=== PATIENT | male | born 1965 | race Caucasian/White ===

== ENCOUNTER 2025-02-14 06:38 | Day surgery (SDC) | payer OTHER, SELFPAY ==
[2025-02-14] VITALS (8 sets, daily range): BP systolic 97–131; BP diastolic 70–84; PULSE 63–76; RESP 16; TEMP 36.2–36.8; O2SAT 94–99; BMI 30.6
--- OUTSIDE RECORDS SUMMARY | 2025-02-14 06:41 | XMS RPT_ITS | CCD ---
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 Name Role Phone Unavailable Primary Care Provider EM Ludwig Attending Unavailroxane zaragoza SELF Referring Unavailable Johan Stubbs PA-C Primary Care Provider KATHERINE MCNEIL APRN Attending Unavailable KATHERINE MCNEIL APRN Primary Care Unavailable KATHERINE MCNEIL APRN Admitting Unavailable KATHERINE MCNEIL APRN Attending Unavailable KATHERINE MCNEIL APRN Primary Care Unavailable KATHERINE MCNEIL APRN Admitting Unavailable KATHERINE MCNEIL APRN Attending Unavailable KATHERINE MCNEIL APRN Primary Care Unavailable KATHERINE MCNEIL APRN Admitting Unavailable KATHERINE MCNEIL APRN Attending Unavailable KATHERINE MCNEIL APRN Primary Care Unavailable KATHERINE MCNEIL APRN Admitting Unavailable Katherine Mcneil Primary Care UnavailBaltazar Vital Attending Unavailable Medications Current Medications Medication Drug Class(es) Dates Sig (Normalized) Sig (Original) Esomeprazole (1 source) Proton Pump Inhibitor esomeprazo le magnesium (NEXIUM ORAL) Take by mouth. Active Ibuprofen (3 sources) Nonsteroidal Anti-inflammatory Drug IBUPROFEN ORAL Ta ke by mouth as needed. Active IBUPROFEN ORAL T sabrina by mouth as needed. 0 Active Comment on above: Take by mouth as nee ded. Completed/Discontinued Medications Medication Drug Class(es) Dates Sig (Normalized) Sig (Original) tropicamide 10 mg/ml ophthalmic solution (4 sources) Anticholinergic Start: 05-10-2024 End: 05-10-2024 tropicamide 1 % 1 Drop (MYDRIACYL) Start: 05-10-2024 End: 05-10-2024 1 Drop, BOTH EYES, ONCE, 1 d ose, On Fri05/10/24 at 1730, FOR THE EYE Start: 05-05-2023 End: 05-05-2023 tropicamide 1 % 1 Drop (MYDR IACYL) Start: 06-18-2021 End: 06-18-2021 tropicamide 1 % 1 Drop (MYDR IACYL) Problems Active Problems Problem Classification Problem Date Documented Da te Episodic/Chronic Blindness and vision defects (12 sources) Bilateral hyperopia of eyes; Translations: [Hypermetropia, bilateral] Onset: 06-06-2020 Episodic Diabetes mellitus without complication (1 source) Type 2 diabetes mellitus without complications; Translations: [Type 2 diabetes mellitus without complications] Onset: 12-03-2024 Chronic Esophageal disorders (1 source) Gastro-esophageal reflux disease without esophagitis; Translations: [Gastro-esophagea l reflux disease without esophagitis] Onset: 12-03-2024 Chronic Essential hypertension (1 source) Essential (primary) hypertension; Translations: [Essential (primary) hypertension] Onset: 12-03-2024 Chronic Other liver diseases (1 source) Abnormal levels of other serum enzymes; Translations: [Abnormal levels of other serum enzymes] Onset: 12-03-2024 Episodic Other nutritional; endocrine; and metabolic disorders (1 source) Obesity, unspecified; Translations: [Obesity, unspecified] Onset: 12-03-2024 Chronic Other nutritional; endocrine; and metabolic disorders (1 source) Body mass index (BMI) 32.0-32.9, adult; Translations: [Body mass index [BMI] 32.0-32.9, adult] Onset: 05-19-2024 Chronic Past or Other Problems Problem Classification Problem Date Documented Date Episodic/Chronic Diabetes mellitus without complication (3 sources) Other abnormal glucose; Translations: [Other abnormal glucose] Onset: 05-20-2024 Episodic Fluid and electrolyte disorders (1 source) Hyperosmolality and hypernatremia; Translations: [Hyperosmolality and hypernatremia] Onset: 05-25-2024 Episodic Other screening for suspected conditions (not mental disorders or infectious disease) (4 sources) Encounter for screening for diseases of the blood and blood-forming organs and certain disorders involving the immune mechanism; Translations: [Encounter for screening for other metabolic disorders] Onset: 05-19-2024 Episodic Results Test Name Value Interpretation Reference Range Facil ity CBC + DIFFon 12-03-2024 Baso # 0.04 x10EE3/UL Normal 0.00 - 0.10 [facility] Comment on above: Performed By: #### 2 [id number] #### [facility],[address] [place] [address] 60114 Basophils/100 WBC (Bld) 0.4 % Normal 0.0 - 2.0 [facility] Comment on above: Performed By: #### 2 89438 #### [facility],[address] [place], [place] [id number] CBC + DIFF Normal [facility] Comment on above: Result Comment: CBC- COMPLETE BLOOD COUNT Performed By: #### 2 55900 #### [facility],[address] [place] [address] EO # 0.14 x10EE3/UL Normal 0.00 - 0.50 [facility] Comment on above: Performed By: #### 2 60660 #### [facility],[address] [place] [address] 37010 Eosinophils/100 WBC (Bld) 1.5 % Normal 0.0 - 7.0 [facility] Comment on above: Performed By: #### 2 41645 #### [facility],[address] [place], [place] [id number] Erythrocyte distribution width (RBC) [Ratio] 13.8 % Normal 12.0 - 15.6 [facility] Comment on above: Performed By: #### 2 10120 #### [facility],[address] [place] [address] Hematocrit (Bld) [Volume fraction] 47.5 % Normal 40.0 - 52.0 [facility] Comment on above: Performed By: #### 2 22854 #### [facility],[address] [place] [address] 58993 Hemoglobin (Bld) [Mass/Vol] 16.3 g/dL Normal 13.0 - 17.5 [facility] Comment on above: Performed By: #### 2 71307 #### [facility],[address] [place], [place] [phone] Lymph # 1.98 x10EE3/UL Normal 0.80 - 2.80 [facility] Comment on above: Performed By: #### 2 19758 #### [facility],[address] [place] [address] Lymphocytes/100 WBC (Bld) 22.0 % Normal 20.0 - 45.0 [facility] Comment on above: Performed By: #### 2 67969 #### [facility],[address] [place] [address] MANUAL DIFF N/A Normal [facility] Comment on above: Performed By: #### 2 94893 #### [facility],[address] [place] [address] MCH (RBC) [Entitic mass] 30 pg Normal 27 - 33 [facility] Comment on above: Performed By: #### 2 12622 #### [place] [address] MCHC 34 X10 3 Normal 32 - 36 [facility] Comment on above: Performed By: #### 2 50873 #### [place] [id number] MCV (RBC) [Entitic vol] 88 fL Normal 81 - 98 [facility] Comment on above: Performed By: #### 2 86369 #### [facility],[address] [place] [address] Tama # 0.59 x10EE3/UL Normal 0.20 - 1.00 [facility] Comment on above: Performed By: #### 2 66380 #### [place] [id number] MONOS % 6.6 % Normal 0.0 - 10.0 [facility] Comment on above: Performed By: #### 2 13990 #### [facility],[address] [place], [place] [phone] Morphology Dmitriy (Bld) [Interp] N/A Normal [facility] Comment on above: Performed By: #### 2 68319 #### [facility],[address] [place] [address] 21868 Neut # 6.26 x10EE3/UL Normal 1.50 - 7.10 [facility] [place] Comment on above: Performed By: #### 2 53381 #### [facility],[address] [place] [address] 89541 Neutrophils/100 WBC (Bld) 69.5 % Normal 46.0 - 76.0 [facility] Comment on above: Performed By: #### 2 41034 #### [facility],[address] [place] [address] 08672 PLATELET 259 x10EE3/UL Normal 150 - 450 [facility] Comment on above: Performed By: #### 2 55387 #### [facility],[address] [place] [address] 29963 Platelet mean volume (Bld) [Entitic vol] 7.7 fL Normal 6.4 - 10.5 [facility] Comment on above: Result Comment: AUTO MATED DIFFERENTIAL Performed By: #### 2 74817 #### [facility],[address] [place] [address] 80887 RBC 5.38 x 10EE6/UL Normal 4.50 - 6.00 [facility] Comment on above: Performed By: #### 2 34303 #### [facility],[address] [place] [address] 72124 WBC 9.0 x 10EE3/UL Normal 4.5 - 10.8 [facility] Comment on above: Performed By: #### 2 66470 #### [facility],[address] [place] [address] 90148 CMP with eGFRon 12-03-2024 AGE 59 years Normal [facility] Comment on above: Performed By: #### 2 02629 #### [facility],[address] [place] [address] 15821 Albumin [Mass/Vol] 3.6 g/dL Normal 3.4 - 5.0 [facility] Comment on above: Performed By: #### 2 57063 #### [facility],[address] [place] [address] 99117 Albumin/Globulin [Mass ratio] 1.1 {ratio} Normal 0.9 - 1.6 [facility] Comment on above: Performed By: #### 2 45907 #### [facility],[address] [place] [address] 49247 ALK PHOS 152 U/L High 46 - 116 [facility] Comment on above: Performed By: #### 2 91710 #### [facility],[address] [place], [place] [phone] ALT [Catalytic activity/Vol] 24 U/L Normal 16 - 63 [facility] Comment on above: Performed By: #### 2 97535 #### [facility],[address] [place], [place] [phone] Anion gap [Moles/Vol] 10 mmol/L Normal 10 - 20 [facility] Comment on above: Performed By: #### 2 08860 #### [facility],[address] [place] [address] 97790 AST [Catalytic activity/Vol] 23 U/L Normal 15 - 37 [facility] Comment on above: Performed By: #### 2 90876 #### [facility],[address] [place] [address] 66856 B/C RATIO 24 ratio Normal 0 - 30 [facility] Comment on above: Performed By: #### 2 36355 #### [facility],[address] [place] [address] 46800 Bilirubin [Mass/Vol] 0.4 mg/dL Normal 0.2 - 1.0 [facility] Comment on above: Performed By: #### 2 72515 #### [facility],[address] [place] [address] 58941 Calcium [Mass/Vol] 9.0 mg/dL Normal 8.5 - 10.1 [facility] Comment on above: Performed By: #### 2 84521 #### [facility],[address] [place], [place] [phone] Chloride [Moles/Vol] 107 mmol/L Normal 98 - 107 [facility] Comment on above: Performed By: #### 2 36949 #### [facility],[address] [place] [address] 13898 CMP with eGFR Normal [facility] Comment on above: Result Comment: COMP REHENSIVE METABOLIC PANEL Performed By: #### 2 47327 #### [place] [address] CO2 [Moles/Vol] 30.9 mmol/L Normal 21.0 - 32.0 [facility] Comment on above: Performed By: #### 2 54451 #### [facility],[address] [place], [place] [phone] Creatinine [Mass/Vol] 0.79 mg/dL Normal 0.70 - 1.30 [facility] Comment on above: Performed By: #### 2 80053 #### [facility],[address] [place], [place] [phone] GFR/1.73 sq M.predicted among non-blacks MDRD (S/P/Bld) [Vol rate/Area] mL/min/{1.73_m2} Normal 60 - 999 [facility] Comment on above: Performed By: #### 2 37907 #### [facility],[address] [place] [address] Result Comment: ACCO RDING TO THE NATIONAL KIDNEY DISEASE EDUCATION PROGRAM(NKDE), A NORMAL eGFR IS A VALUE GREATER THAN OR EQUAL TO 60 ML/MIN/1.73 SQ METERS. CHRONIC KIDNEY DISEASE: <60mL/MIN/1.73 SQ METERS KIDNEY FAILURE: <15mL/MIN/1.73 SQ METERS THIS TEST SHOULD ONLY BE USED FOR PATIENTS 18 YEARS OF AGE AND OLDER. Globulin (S) [Mass/Vol] 3.3 g/dL Normal 1.5 - 3.8 [facility] Comment on above: Performed By: #### 2 84896 #### [facility],[address] [place] [address] 92918 Glucose [Mass/Vol] 117 mg/dL High 74 - 106 [facility] Comment on above: Performed By: #### 2 34303 #### [facility],[address] [place] [address] 30169 Potassium [Moles/Vol] 4.1 mmol/L Normal 3.5 - 5.1 [facility] Comment on above: Performed By: #### 2 57301 #### [facility],[address] [place] [address] 52918 Protein [Mass/Vol] 6.9 g/dL Normal 6.4 - 8.2 [facility] Comment on above: Performed By: #### 2 93110 #### [facility],[address] [place] [address] 74377 Sodium [Moles/Vol] 144 mmol/L Normal 136 - 145 [facility] Comment on above: Performed By: #### 2 57449 #### [facility],[address] [place] [address] 19146 Urea nitrogen [Mass/Vol] 19 mg/dL High 7 - 18 [facility] Comment on above: Performed By: #### 2 64886 #### [facility],[address] [place] [address] 62584 HEMOGLOBIN A1C (POM)on 12-03 Glucose [Mass/Vol] 137.0 mg/dL High 0.0 - 0.0 [facility] Comment on above: Result Comment: BLDo HEMOGLOBIN A1C REFERENCE RANGESBLDo Suggested Diagnosis HbA1c(%) HbA1C (mmol/mol Diabetic >/=6.5 >/=48 Prediabetes 5.7 - 6.4 39 - 47 Normal <5.7 <39 Performed By: #### 2 81780 #### [facility],[address] [place] [address] 21828 HbA1c (Bld) [Mass fraction] 6.4 % Normal 0.0 - 6.5 [facility] Comment on above: Performed By: #### 2 56747 #### [facility],[address] [place] [address] 64561 LIPID PROFILEon 12-03-2024 Cholesterol [Mass/Vol] 174 mg/dL Normal 0 - 240 [facility] Comment on above: Performed By: #### 2 03881 #### [facility],[address] [place] [address] 02247 Cholesterol in HDL [Mass/Vol] 39 mg/dL Low 40 - 60 [facility] Comment on above: Performed By: #### 2 07549 #### [facility],[address] [place] [address] 44527 Cholesterol in LDL [Mass/Vol] 122 mg/dL Normal 0 - 129 [facility] Comment on above: Performed By: #### 2 82870 #### [facility],[address] [place] [address] 27325 Cholesterol.total/ Cholesterol in HDL [Mass ratio] 4.5 {ratio} Normal 0.0 - 5.0 [facility] Comment on above: Performed By: #### 2 68276 #### [facility],[address] [place] [address] 57064 Lipid 1996 panel Normal [facility] Comment on above: Result Comment: LIPI D PROFILE Performed By: #### 2 48938 #### [facility],[address] [place] [address] 84590 Triglyceride [Mass/Vol] 64 mg/dL Normal 0 - 150 [facility] Comment on above: Performed By: #### 2 10971 #### [facility],[address] [place] [address] 71658 CMP with eGFRon 05-25-2024 AGE 58 years Normal [facility] Comment on above: Performed By: #### 2 28983 #### [facility],[address] [place] [address] 04683 Albumin [Mass/Vol] 4.1 g/dL Normal 3.4 - 5.0 [facility] Comment on above: Performed By: #### 2 43707 #### [facility],[address] [place] [address] 72745 Albumin/Globulin [Mass ratio] 1.2 {ratio} Normal 0.9 - 1.6 [facility] Comment on above: Performed By: #### 2 51054 #### [facility],[address] [place] [address] 26124 ALK PHOS 160 U/L High 46 - 116 [facility] Comment on above: Performed By: #### 2 90105 #### [facility],[address] [place] [address] 81750 ALT [Catalytic activity/Vol] 27 U/L Normal 16 - 63 [facility] Comment on above: Performed By: #### 2 29803 #### [facility],[address] [place] [address] 41135 Anion gap [Moles/Vol] 11 mmol/L Normal 10 - 20 [facility] Comment on above: Performed By: #### 2 61242 #### [facility],[address] [place] [address] 60820 AST [Catalytic activity/Vol] 34 U/L Normal 15 - 37 [facility] Comment on above: Performed By: #### 2 48420 #### [facility],[address] [place] [address] 44077 B/C RATIO 14 ratio Normal 0 - 30 [facility] Comment on above: Performed By: #### 2 79390 #### [facility],[address] [place] [address] 14654 Bilirubin [Mass/Vol] 0.5 mg/dL Normal 0.2 - 1.0 [facility] Comment on above: Performed By: #### 2 28822 #### [facility],[address] [place] [address] 71919 Calcium [Mass/Vol] 9.5 mg/dL Normal 8.5 - 10.1 [facility] Comment on above: Performed By: #### 2 16324 #### [facility],[address] [place] [address] 13336 Chloride [Moles/Vol] 106 mmol/L Normal 98 - 107 [facility] Comment on above: Performed By: #### 2 88084 #### [facility],[address] [place] [address] 78724 CMP with eGFR Normal [facility] Comment on above: Result Comment: COMP REHENSIVE METABOLIC PANEL Performed By: #### 2 49263 #### [facility],[address] [place] [address] 86321 CO2 [Moles/Vol] 27.9 mmol/L Normal 21.0 - 32.0 [facility] Comment on above: Performed By: #### 2 10883 #### [facility],[address] [place] [address] 08806 Creatinine [Mass/Vol] 0.83 mg/dL Normal 0.70 - 1.30 [facility] Comment on above: Performed By: #### 2 67342 #### [facility],[address] [place] [address] 04859 GFR/1.73 sq M.predicted among non-blacks MDRD (S/P/Bld) [Vol rate/Area] mL/min/{1.73_m2} Normal 60 - 999 [facility] Comment on above: Performed By: #### 2 99530 #### [facility],[address] [place] [address] 14673 Result Comment: ACCO RDING TO THE NATIONAL KIDNEY DISEASE EDUCATION PROGRAM(NKDE), A NORMAL eGFR IS A VALUE GREATER THAN OR EQUAL TO 60 ML/MIN/1.73 SQ METERS. CHRONIC KIDNEY DISEASE: <60mL/MIN/1.73 SQ METERS KIDNEY FAILURE: <15mL/MIN/1.73 SQ METERS THIS TEST SHOULD ONLY BE USED FOR PATIENTS 18 YEARS OF AGE AND OLDER. Globulin (S) [Mass/Vol] 3.5 g/dL Normal 1.5 - 3.8 [facility] Comment on above: Performed By: #### 2 90636 #### [facility],[address] [place] [address] 23580 Glucose [Mass/Vol] 115 mg/dL High 74 - 106 [facility] Comment on above: Performed By: #### 2 58814 #### [facility],[address] [place] [address] 64657 Potassium [Moles/Vol] 4.3 mmol/L Normal 3.5 - 5.1 [facility] Comment on above: Performed By: #### 2 53284 #### [facility],[address] [place] [address] 12527 Protein [Mass/Vol] 7.6 g/dL Normal 6.4 - 8.2 [facility] Comment on above: Performed By: #### 2 93272 #### [facility],[address] [place] [address] 57083 Sodium [Moles/Vol] 141 mmol/L Normal 136 - 145 [facility] Comment on above: Performed By: #### 2 05769 #### [facility],[address] [place] [address] 44786 Urea nitrogen [Mass/Vol] 12 mg/dL Normal 7 - 18 [facility] Comment on above: Performed By: #### 2 36340 #### [facility],[address] [place] [address] 56277 HEMOGLOBIN A1C (POM)on 05-20 Glucose [Mass/Vol] 148.5 mg/dL High 0.0 - 0.0 [facility] Comment on above: Result Comment: BLDo HEMOGLOBIN A1C REFERENCE RANGESBLDo Suggested Diagnosis HbA1c(%) HbA1C (mmol/mol Diabetic >/=6.5 >/=48 Prediabetes 5.7 - 6.4 39 - 47 Normal <5.7 <39 Performed By: #### 2 81060 #### [facility],[address] [place] [address] HbA1c (Bld) [Mass fraction] 6.8 % High 0.0 - 6.5 [facility] Comment on above: Performed By: #### 2 00937 #### [facility],[address] [place] [address] CBC + DIFFon 05-19-2024 Baso # 0.05 x10EE3/UL Normal 0.00 - 0.10 [facility] Comment on above: Performed By: #### 2 60613 #### [facility],[address] [place], [place] [id number] Basophils/100 WBC (Bld) 0.6 % Normal 0.0 - 2.0 [facility] Comment on above: Performed By: #### 2 96996 #### [facility],[address] [place] [address] CBC + DIFF Normal [facility] Comment on above: Result Comment: CBC- COMPLETE BLOOD COUNT Performed By: #### 2 60323 #### [facility],[address] [place] [address] 25255 EO # 0.16 x10EE3/UL Normal 0.00 - 0.50 [facility] Comment on above: Performed By: #### 2 31223 #### [facility],[address] [place], [place] [phone] Eosinophils/100 WBC (Bld) 1.9 % Normal 0.0 - 7.0 [facility] Comment on above: Performed By: #### 2 21477 #### [facility],[address] [place], [place] [address] Erythrocyte distribution width (RBC) [Ratio] 13.3 % Normal 12.0 - 15.6 [facility] Comment on above: Performed By: #### 2 16908 #### [facility],[address] [place] [address] 02859 Hematocrit (Bld) [Volume fraction] 44.7 % Normal 40.0 - 52.0 [facility] Comment on above: Performed By: #### 2 62446 #### [facility],[address] [place] [address] 05393 Hemoglobin (Bld) [Mass/Vol] 15.4 g/dL Normal 13.0 - 17.5 [facility] Comment on above: Performed By: #### 2 85766 #### [facility],[address] [place] [address] 11494 Lymph # 1.84 x10EE3/UL Normal 0.80 - 2.80 [facility] Comment on above: Performed By: #### 2 88076 #### [facility],[address] [place] [address] 28980 Lymphocytes/100 WBC (Bld) 22.0 % Normal 20.0 - 45.0 [facility] Comment on above: Performed By: #### 2 91957 #### [facility],[address] [place] [address] 25925 MANUAL DIFF N/A Normal [facility] Comment on above: Performed By: #### 2 87344 #### [facility],[address] [place] [address] 74109 MCH (RBC) [Entitic mass] 31 pg Normal 27 - 33 [facility] Comment on above: Performed By: #### 2 23510 #### [facility],[address] [place] [address] 87455 MCHC 35 X10 3 Normal 32 - 36 [facility] Comment on above: Performed By: #### 2 14690 #### [facility],[address] [place] [address] 35594 MCV (RBC) [Entitic vol] 90 fL Normal 81 - 98 [facility] Comment on above: Performed By: #### 2 50221 #### [facility],[address] [place] [address] 84231 Tama # 0.63 x10EE3/UL Normal 0.20 - 1.00 [facility] Comment on above: Performed By: #### 2 74327 #### [facility],[address] [place] [address] 44008 MONOS % 7.6 % Normal 0.0 - 10.0 [facility] Comment on above: Performed By: #### 2 [id number] #### [facility],[address] [place] [address] 84874 Morphology Dmitriy (Bld) [Interp] N/A Normal [facility] Comment on above: Performed By: #### 2 01910 #### [facility],[address] [place] [address] 71880 Neut # 5.71 x10EE3/UL Normal 1.50 - 7.10 [facility] Comment on above: Performed By: #### 2 35455 #### [facility],[address] [place] [address] 67700 Neutrophils/100 WBC (Bld) 68.1 % Normal 46.0 - 76.0 [facility] Comment on above: Performed By: #### 2 20637 #### [facility],[address] [place] [address] 43233 PLATELET 260 x10EE3/UL Normal 150 - 450 [facility] Comment on above: Performed By: #### 2 95207 #### [facility],[address] [place] [address] 83640 Platelet mean volume (Bld) [Entitic vol] 7.8 fL Normal 6.4 - 10.5 [facility] Comment on above: Result Comment: AUTO MATED DIFFERENTIAL Performed By: #### 2 46447 #### [facility],[address] [place] [address] 15121 RBC 4.95 x 10EE6/UL Normal 4.50 - 6.00 [facility] Comment on above: Performed By: #### 2 60828 #### [facility],[address] [place] [address] 96560 WBC 8.4 x 10EE3/UL Normal 4.5 - 10.8 [facility] Comment on above: Performed By: #### 2 13100 #### [facility],[address] [place] [address] 90476 CMP with eGFRon 05-19-2024 AGE 58 years Normal [facility] Comment on above: Performed By: #### 2 39060 #### [facility],[address] [place] [address] 04424 Albumin [Mass/Vol] 4.3 g/dL Normal 3.4 - 5.0 [facility] Comment on above: Performed By: #### 2 53739 #### [facility],[address] [place] [address] 33944 Albumin/Globulin [Mass ratio] 1.2 {ratio} Normal 0.9 - 1.6 [facility] Comment on above: Performed By: #### 2 72954 #### [facility],[address] [place] [address] 76284 ALK PHOS 183 U/L High 46 - 116 [facility] Comment on above: Performed By: #### 2 39913 #### [facility],[address] [place] [address] 66905 ALT [Catalytic activity/Vol] 29 U/L Normal 16 - 63 [facility] Comment on above: Performed By: #### 2 11403 #### [facility],[address] [place] [address] 25727 Anion gap [Moles/Vol] 14 mmol/L Normal 10 - 20 [facility] Comment on above: Performed By: #### 2 01465 #### [facility],[address] [place] [address] 05629 AST [Catalytic activity/Vol] 33 U/L Normal 15 - 37 [facility] Comment on above: Performed By: #### 2 05710 #### [facility],[address] [place] [address] 77452 B/C RATIO 14 ratio Normal 0 - 30 [facility] Comment on above: Performed By: #### 2 41598 #### [facility],[address] [place] [address] 68783 Bilirubin [Mass/Vol] 0.4 mg/dL Normal 0.2 - 1.0 [facility] Comment on above: Performed By: #### 2 86340 #### [facility],[address] [place] [address] 51213 Calcium [Mass/Vol] 10.1 mg/dL Normal 8.5 - 10.1 [facility] Comment on above: Performed By: #### 2 86771 #### [facility],[address] [place] [address] 93826 Chloride [Moles/Vol] 116 mmol/L High 98 - 107 [facility] Comment on above: Performed By: #### 2 17551 #### [facility],[address] [place] [address] 20741 CMP with eGFR Normal [facility] Comment on above: Result Comment: COMP REHENSIVE METABOLIC PANEL Performed By: #### 2 70269 #### [facility],[address] [place] [address] 08950 CO2 [Moles/Vol] 29.1 mmol/L Normal 21.0 - 32.0 [facility] Comment on above: Performed By: #### 2 11741 #### [facility],[address] [place] [address] 53114 Creatinine [Mass/Vol] 1.04 mg/dL Normal 0.70 - 1.30 [facility] Comment on above: Performed By: #### 2 77094 #### [facility],[address] [place] [address] 55192 eGFR 74 ML/MINUTE Normal 60 - 999 [facility] Comment on above: Performed By: #### 2 44932 #### [facility],[address] [place] [address] 21767 eGFR(AA) 90 ML/MINUTE Normal 60 - 999 [facility] Comment on above: Result Comment: ACCO RDING TO THE NATIONAL KIDNEY DISEASE EDUCATION PROGRAM(NKDE), A NORMAL eGFR IS A VALUE GREATER THAN OR EQUAL TO 60 ML/MIN/1.73 SQ METERS. CHRONIC KIDNEY DISEASE: <60mL/MIN/1.73 SQ METERS KIDNEY FAILURE: <15mL/MIN/1.73 SQ METERS THIS TEST SHOULD ONLY BE USED FOR PATIENTS 18 YEARS OF AGE AND OLDER. Performed By: #### 2 42449 #### [facility],[address] [place] [address] 34424 Globulin (S) [Mass/Vol] 3.7 g/dL Normal 1.5 - 3.8 [facility] Comment on above: Performed By: #### 2 61835 #### [facility],[address] [place] [address] 08808 Glucose [Mass/Vol] 134 mg/dL High 74 - 106 [facility] Comment on above: Performed By: #### 2 83404 #### [facility],[address] [place] [address] 43781 Potassium [Moles/Vol] 4.7 mmol/L Normal 3.5 - 5.1 [facility] Comment on above: Performed By: #### 2 02240 #### [facility],[address] [place] [address] 94514 Protein [Mass/Vol] 8.0 g/dL Normal 6.4 - 8.2 [facility] Comment on above: Performed By: #### 2 09455 #### [facility],[address] [place] [address] 92180 Sodium [Moles/Vol] 154 mmol/L Critically high 136 - 145 [facility] Comment on above: Result Comment: { CA LLED TO BY AEL 2013 { READ BACK BY RA AT 2017 Performed By: #### 2 05447 #### [facility],[address] [place] [address] 28501 Urea nitrogen [Mass/Vol] 15 mg/dL Normal 7 - 18 [facility] Comment on above: Performed By: #### 2 73535 #### [facility],[address] [place] [address] 96259 LIPID PROFILEon 05-19-2024 Cholesterol [Mass/Vol] 213 mg/dL Normal 0 - 240 [facility] Comment on above: Performed By: #### 2 42470 #### [facility],[address] [place] [address] 31062 Cholesterol in HDL [Mass/Vol] 47 mg/dL Normal 40 - 60 [facility] Comment on above: Performed By: #### 2 66565 #### [facility],[address] [place] [address] 20944 Cholesterol in LDL [Mass/Vol] 142 mg/dL High 0 - 129 [facility] Comment on above: Performed By: #### 2 76469 #### [facility],[address] [place] [address] 92255 Cholesterol.total/ Cholesterol in HDL [Mass ratio] 4.5 {ratio} Normal 0.0 - 5.0 [facility] Comment on above: Performed By: #### 2 89443 #### [facility],[address] [place] [address] 40719 Lipid 1996 panel Normal [facility] Comment on above: Result Comment: LIPI D PROFILE Performed By: #### 2 84406 #### [facility],[address] [place] [address] 08422 Triglyceride [Mass/Vol] 121 mg/dL Normal 0 - 150 [facility] Comment on above: Performed By: #### 2 12736 #### [facility],[address] [place] [address] 99137 Coronavirus 2019on 0 COVID 19 Result 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 [facility] Comment on above: Result Comment: Posi tive for This test was developed and its performance characteristics determined by [facility] [place]. This test has been authorized by FDA under an Emergency Use Authorization (EUA). This test has been validated in accordance with the FDA's Guidance Document Policy for Diagnostics Testing in Laboratories Certified to Perform High Complexity Testing under CLIA prior to Emergency use Authorization for Coronavirus Disease 2019 during the Public Health Emergency issued on May 22, 2019. COVID19 (SARS This test was developed and its performance characteristics determined by [facility] [place]. This test has been authorized by FDA under an Emergency Use Authorization (EUA). This test has been validated in accordance with the FDA's Guidance Document Policy for Diagnostics Testing in Laboratories Certified to Perform High Complexity Testing under CLIA prior to Emergency use Authorization for Coronavirus Disease 2019 during the Public Health Emergency issued on May 22, 2019. CoV2) by This test was developed and its performance characteristics determined by [facility] [place]. This test has been authorized by FDA under an Emergency Use Authorization (EUA). This test has been validated in accordance with the FDA's Guidance Document Policy for Diagnostics Testing in Laboratories Certified to Perform High Complexity Testing under CLIA prior to Emergency use Authorization for Coronavirus Disease 2019 during the Public Health Emergency issued on May 22, 2019. PCR.(*) This test was developed and its performance characteristics determined by [facility] [place]. This test has been authorized by FDA under an Emergency Use Authorization (EUA). This test has been validated in accordance with the FDA's Guidance Document Policy for Diagnostics Testing in Laboratories Certified to Perform High Complexity Testing under CLIA prior to Emergency use Authorization for Coronavirus Disease 2019 during the Public Health Emergency issued on May 22, 2019. 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 Normal [facility] Comment on above: Result Comment: Naso pharyngeal Corrected on 02/03 AT 1336: Previously reported as NASAL Swab Corrected on 11/13 AT 1336: Previously reported as NASAL Encounters Encounter Date Encounter Type Care Provider Facility Start: 02-14-2025 ambulatory Katherine Mcneil Fa cility:[facility] Start: 12-03-2024 End: 12-03-2024 ambulatory KATHERINE MCNEIL [facility] Start: 05-25-2024 End: 05-25-2024 ambulatory KATHERINE MCNEIL [facility] Start: 05-20-2024 End: 05-20-2024 ambulatory KATHERINE MCNEIL [facility] Start: 05-19-2024 End: 05-19-2024 ambulatory KATHERINE MCNEIL [facility] Start: 05-19-2024 End: 05-19-2024 Encounter for general adult medical examination without abnormal findings KATHERINE MCNEIL [facility] Start: 05-10-2024 End: 05-10-2024 ambulatory EM GONZALES Facility:[facility] Start: 05-10-2024 End: 05-10-2024 Patient encounter procedure Em Gonzales OD Work Phone: Optometry Comment on above: Hyperopia, bilateral (Primary Dx); Regular astigmatism of both eyes; Presbyopia Start: 05-05-2023 End: 05-05-2023 Patient encounter procedure Em Gonzales OD Work Phone: Optometry Comment on above: Hyperopia, bilateral (Primary Dx); Regular astigmatism of both eyes; Presbyopia Start: 06-18-2021 End: 06-18-2021 Patient encounter procedure Em Gonzales OD Work Phone: Optometry Comment on above: Hyperopia, bilateral (Primary Dx); Regular astigmatism of both eyes; Presbyopia Procedures Date Procedure Procedure Detail Performing Clinician Start: 05-19-2024 PSA screening KATHERINE JAH DOUGLAS Comment on above: Performed By: #### 2 [id number] #### [facility],[address] [place], [place] [id number] Start: 09-18-2015 Colonoscopy Em galdamez OD Work Phone: Plan of Treatment Date Care Activity Detail Author Start: 05-16-2025 End: 05-16-2025 Patient encounter procedure 05/16/2025 5:00 PM EST Office Visit [facility] [address] [place] [address] Em Gonzales, OD [address] [place] [address] Eye exam MMO Routine covered with [employer] # Optometry Comment on above: Eye exam MMO Routine covered with [employer] # Start: 2023 Covid-19 Vaccine () Covid-19 Vaccine () [facility] Start: 2023 Influenza vaccination Influenza Vacc ine (#1) [facility] Start: 03-24-2023 Depression Assessment Depression Ass essment [facility] Start: 11-22-2022 Influenza vaccination Influenza Vacc ine (#1) [facility] Start: 11-22-2022 Prostate specific an tigen measurement Prostate Cancer Screening Discussion [facility] Start: 11-22-2020 Influenza vaccination INFLUENZA (#1) [facility] Start: 09-17-2020 Colonoscopy COLONOSCOPY [facility] Start: 09-17-2020 COLORECTAL CANCER SCREENING COLORECTAL CANCER SCREENING [facility] Start: 09-17-2020 Screening for malign ant neoplasm of colon [facility] Start: 11-22-2017 Pneumococcal Vaccine : 50+ (1 of 1 - PCV) Pneumococcal Vaccine: 50+ (1 of 1 - PCV) [facility] Start: 11-22-2017 SHINGRIX VACCINE (1 of 2) SHINGRIX V ACCINE (1 of 2) [facility] Start: 11-22-2012 COLOGUARD (FIT-DNA) COLOGUARD (FIT-D NA) [facility] Start: 11-22-[address] COLONOGRAPHY [facility] Start: 11-22-2012 DIABETES SCREEN DIABETES SCREEN [facility] Start: 11-22-2012 Diabetes Screening Diabetes Screenin g [facility] Start: 11-22-2012 FECAL OCCULT BLOOD FECAL OCCULT BLOO D [facility] Start: 11-22-2012 Screening for malign ant neoplasm of colon [facility] Start: 11-22-2012 SIGMOIDOSCOPY SIGMOIDOSCOPY [facility] Start: 11-22-2002 Lipid panel Lipid Screening [facility] Start: 11-22-2002 LIPID SCREEN LIPID SCREEN [facility] Start: 11-22-1986 Hepatitis B Vaccine (1 of 3 - 19+ 3-dose series) Hepatitis B Vaccine (1 of 3 - 19+ 3-dose series) [facility] Start: 11-22-1986 Urine microalbumin profile [facility] Start: 11-22-1985 Anxiety Screening Anxiety Screening [facility] Start: 11-22-1985 Depression Screening Depression Scre ening [facility] Start: 11-22-1985 HEPATITIS C SCREENING HEPATITIS C [facility] Start: 11-22-1985 Hepatitis C screening Hepatitis C [facility] Start: 11-22-1985 HIV SCREENING HIV SCREENING [facility] Start: 11-22-1985 HIV screening HIV Screening [facility] Start: 1979 Adult depression screening assessment DEPRESSION SCREENING [facility] Start: 11-22-1972 COVID-19 VACCINE (1) COVID-19 VACCIN E (1) [facility] Start: 05-22-1968 Covid-19 Vaccine (#1) Covid-19 Vacci ne (#1) [facility] Start: 1967 Hepatitis B Vaccine (1 of 3 - 3-dose series) Hepatitis B Vaccine (1 of 3 - 3-dose series) [facility] Payers Date Payer Category Payer Self-pay 2022 Private Health Insurance [employer] PPO [id number] 2022 Unknown MMO [employer] PPO [id number] 2022-Present [phone] [address] [place] [id number] PPO [id number] 2022 Unknown [id number] 2020 Unknown [employer] P [employer] VSP VISION [id number] 2020-Present [address] [place] [address] Indemnity [id number] 1967 Unknown [id number] 1967 Unknown [id number] 1967 Unknown [id number] 1967 Unknown [id number] Unknown [id number] Social History Date Type Detail Facility Tobacco smoking stat [facility] Never smoked tobacco [facility] Work Phone: Start: 06-18-2021 End: 05-10-2024 Alcohol intake Current non-drinker of alcohol (finding) [facility] Start: 1965 Sex Assigned At Not on file [facility] Start: 06-08-2021 End: 06-18-2021 Exposure to SARS-CoV-2 (event) Not sure [facility] Start: 05-05-2023 Gender identity Not on file [facility] Start: 05-05-2023 History of Social function [facility] National Score (1-10 0), lower number is lower risk 87 [facility] Instructions 05-10-2024 Patient Instructions Note Date & Type Note Facility 05-10-2024 Instructions Em Gonzales, OD - 05/10/2024 5:14 PM EST ASSESSMENT/PLAN: 1. Hyperopia, bilateral - ICD9: 367.0, ICD10: H52.03 (primary diagnosis) 2. Regular astigmatism of both eyes - ICD9: 367.21, ICD10: H52.223 3. Presbyopia - ICD9: 367.4, ICD10: H52.4 Continue to wear his glasses with the update. Continue to monitor his ocular health Recommended yearly exams. documented in this encounter [facility] Progress note 05-10-2024 Note Date & Type Note Facility 05-10-2024 Note HNO ID: [id number] Author: EM GONZALES OD Service: ? Author Type: PUMP OILER Type: Progress Notes Filed: 05/10/2024 17:15 Note Text: ASSESSMENT/PLAN: 1. Hyperopia, bilateral - ICD9: 367.0, ICD10: H52.03 (primary diagnosis) 2. Regular astigmatism of both eyes - ICD9: 367.21, ICD10: H52.223 3. Presbyopia - ICD9: 367.4, ICD10: H52.4 Continue to wear his glasses with the update. Continue to monitor his ocular health Recommended yearly exams. Em Gonzales, THONY I have confirmed and edited as necessary the relevant ophthalmic history, ROS, and the neuro exam findings as obtained by others. [facility] History of Present illness Narrative 05-10-2024 Em Gonzales, OD - 05/10/2024 5:13 PM EST Note Date & Type Note Facility 05-10-2024 History of Presen t illness Narrative ASSESSMENT/PLAN: 1. Hyperopia, bilateral - ICD9: 367.0, ICD10: H52.03 (primary diagnosis) 2. Regular astigmatism of both eyes - ICD9: 367.21, ICD10: H52.223 3. Presbyopia - ICD9: 367.4, ICD10: H52.4 Continue to wear his glasses with the update. Continue to monitor his ocular health Recommended yearly exams. Em Gonzales OD I have confirmed and edited as necessary the relevant ophthalmic history, ROS, and the neuro exam findings as obtained by others. documented in this encounter [facility] Instructions 05-05-2023 Patient Instructions Note Date & Type Note Facility 05-05-2023 Instructions Em Gonzales, OD - 05/05/2023 10:14 AM EST ASSESSMENT/PLAN: 1. Hyperopia, bilateral - ICD9: 367.0, ICD10: H52.03 (primary diagnosis) 2. Regular astigmatism of both eyes - ICD9: 367.21, ICD10: H52.223 3. 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 Continue to monitor his ocular health Recommended yearly exams. documented in this encounter [facility] History of Present illness Narrative 05-05-2023 Em Gonzales, OD - 05/05/2023 10:12 AM EST Note Date & Type Note Facility 05-05-2023 History of Presen t illness Narrative ASSESSMENT/PLAN: 1. Hyperopia, bilateral - ICD9: 367.0, ICD10: H52.03 (primary diagnosis) 2. Regular astigmatism of both eyes - ICD9: 367.21, ICD10: H52.223 3. 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 Continue to monitor his ocular health Recommended yearly exams. mE Gonzaels, OD I have confirmed and edited as necessary the relevant ophthalmic history, ROS, and the neuro exam findings as obtained by others. I have seen and examined this patient. documented in this encounter [facility] Instructions 06-18-2021 Patient Instructions Note Date & Type Note Facility 06-18-2021 Instructions Em Gonzales OD - 06/18/2021 5:24 PM EDT ASSESSMENT/PLAN: 1. Hyperopia, bilateral - ICD9: 367.0, ICD10: H52.03 (primary diagnosis) 2. Regular astigmatism of both eyes - ICD9: 367.21, ICD10: H52.223 3. 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 Recommended yearly exams. documented in this encounter [facility] History of Present illness Narrative 06-18-2021 Em Gonzales, OD - 06/18/2021 5:23 PM EDT Note Date & Type Note Facility 06-18-2021 History of Presen t illness Narrative ASSESSMENT/PLAN: 1. Hyperopia, bilateral - ICD9: 367.0, ICD10: H52.03 (primary diagnosis) 2. Regular astigmatism of both eyes - ICD9: 367.21, ICD10: H52.223 3. 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 Recommended yearly exams. Em Gonzales, OD documented in this encounter [facility] Evaluation note Note Date & Type Note Facility Evaluation note Diagnosis Hyperopia, bilateral- Primary Regular astigmatism of both eyes Regular astigmatism Presbyopia documented in this encounter [facility] Evaluation note Note Date & Type Note Facility Evaluation note Diagnosis Hyperopia, bilateral- Primary Regular astigmatism of both eyes Regular astigmatism Presbyopia documented in this encounter [facility] Evaluation note Note Date & Type Note Facility Evaluation note Diagnosis Hyperopia, bilateral- Primary Regular astigmatism of both eyes Regular astigmatism Presbyopia documented in this encounter [facility] Summary Purpose Family History No Family History Records FoundNo Family History Records FoundNo Family History Records FoundNo Family History Records Found Advance Directives No Advanced Directives Records FoundDocuments on File Type Date Recorded 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 Expl 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 Advance Directive(s) 09/18/2015 11:47 AM Advance Directive(s) 09/01/2015 8:52 AM Medications Administered Section Inactive Administered Medications - up to 3 most recent administrations Medication Order MAR Action Action Date Dose Rate Site tropicamide 1 % 1 Drop (MYDRIACYL) 1 Drop, BOTH EYES, ONCE, 1 dose, On 06/18/21 at 1730, FOR THE EYE Given 06/18/2021 5:30 PM EDT 1 Drop Additional Source Comments (unrecognized sect ion and content) No Status Records FoundNo Status Records FoundNo Status Records FoundNo Status Records Found INFORMATION SOURCE (unrecogn ized section and content) DATE CREATED AUTHOR 02/05/2020 [facility] DATE CREATED AUTHOR AUTHOR'S ORGANIZ ATION 05/11/2024 [facility] DATE CREATED AUTHOR AUTHOR'S ORGANIZ ATION 12/05/2024 [facility] DATE CREATED AUTHOR AUTHOR'S ORGANIZ ATION 01/31/2025 [facility] Source Comments (unrecognize d section and content) In the event this informatio n is protected by the Federal Confidentiality of Alcohol and Drug Abuse Patient Records regulations: The Federal rules restrict any use of the information to criminally investigate or prosecute any alcohol or drug abuse patient.[facility] the event this information is protected by the Federal Confidentiality of Alcohol and Drug Abuse Patient Records regulations: The Federal rules restrict any use of the information to criminally investigate or prosecute any alcohol or drug abuse patient.[facility] the event this information is protected by the Federal Confidentiality of Alcohol and Drug Abuse Patient Records regulations: The Federal rules restrict any use of the information to criminally investigate or prosecute any alcohol or drug abuse patient.[facility] Reason for Visit (unrecogniz ed section and content) Reason Comments Yearly Exam Inactive Administered Medications - up to 3 most recent administrations Administered Medications (un recognized section and content) Medication Order MAR Action Action Date Dose Rate Site tropicamide 1 % 1 Drop (MYDRIACYL) 1 Drop, BOTH EYES, ONCE, 1 dose, On 05/05/23 at 1030, FOR THE EYE Given 05/05/2023 10:30 AM EST 1 Drop Care Teams (unrecognized sec tion and content) [employer] 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 This clinical summary was aggregated from multiple sources. Caution should be exercised in using it in the provision of clinical care. This summary normalizes information from multiple sources, and as a consequence, information in this document may materially change the coding, format and clinical context of patient data. In addition, data may be omitted in some cases. CLINICAL DECISIONS SHOULD BE BASED ON THE PRIMARY CLINICAL RECORDS. [facility]. provides no warranty or guarantee of the accuracy or completeness of information in this document.
[2025-02-14] MEDS: Lactated Ringers 1,000 ML 15 ML IV (06:58)
--- NOTE | 2025-02-14 07:17 | PCM.HP.STD ---
[facility] - General General Date of Admission: 02/14/25 Date of Service: 02/14/25 Chief Complaint: Screening colonoscopy HPI Narrative TOMAS BECERRA, is a 59 M who presents [for screening colonoscopy. He had a colonoscopy approximately 10 years ago. He does not have any abdominal pain, cramping, chest pain or shortness of breath. He has no current medical problems and does not take any medicines on a daily basis.] [facility] Medical History Wears glasses Gastric reflux Non-smoker Home Medications ?Medication ?Instructions ?Recorded ?Last Taken ?Type omeprazole 20 mg capsule,delayed 20 mg PO DAILY 02/11/25 Unknown History release Allergy/AdvReac Type Severity Reaction Status Date / Time No Known Allergies Allergy Verified 02/14/25 06:58 Surgical History History of back surgery History of surgery History of colonoscopy Social History Smoking Status: Never smoker ROS Constitutional Constitutional: Denies fatigue, fever(s), poor appetite, weight gain or weight loss Gastrointestinal Gastrointestinal: Denies belching, bloating, change in bowel habits, change in stool character, chewing difficulty, coffee ground emesis, constipation, cramping, diarrhea, dyspepsia, dysphagia, early satiety, excessive flatus, fecal incontinence, heartburn, hematemesis, hematochezia, hemorrhoids, loose stools, melena, nausea, odynophagia, rectal bleeding, tenesmus, vomiting or weight changes Vital Signs Vital Signs Vital Signs: 02/14/25 06:59 02/14/25 06:59 02/14/25 06:59 Temperature 98.2 F Temperature Source Temporal Pulse Rate 76 Respiratory Rate 16 Respiratory Pattern Normal Blood Pressure 131/84 H Blood Pressure Mean 99 Blood Pressure Source Monitor Blood Pressure Position Semi-Fowlers Blood Pressure Location Right Arm Baseline BP 131/84 Pulse Ox 99 Oxygen Delivery Method Room Air Weight Weight: 184 lb 1.376 oz Body Mass Index (BMI) 30.6 Physical Exam Const alert, oriented x3, no apparent distress and healthy appearing General Appearance: cooperative GI normal to inspection, nondistended, normoactive bowel sounds, soft to palpation, non-tender and non-distended Percussion: normal to percussion Rectal Exam: deferred Assessment & Plan Assessment/Plan (1) Encounter for screening colonoscopy: PLAN: He was explained alternatives, risk and benefits going on with steady bleeding, infection, sepsis, perforation, need for surgery and . He will have an ASA of 3.
--- NOTE | 2025-02-14 07:20 | PRE.ANES_ITS ---
ASA Classification* ASA Classification ASA Classification: 2 (GERD) Assessment & Plan Anesthesia* Anesthesia Assessment Anesthesia Assessment: Discussed sedation and/or anesthesia options, risks, benefits, and alternatives with patient/parents/legal guardian/POA. Questions invited. The patient/parents/legal guardian/POA seems to understand and agrees to proceed with anesthesia plan. Reviewed the physical assessment, medical history, allergy history and patient home medications list prior to surgery/procedure/anesthetic and documented any changes. Performed airway and anesthesia risk assessments. Anesthesia Type Anesthesia Type: MAC History Source History Obtained from:: Patient and Chart Anesthesia Focused Assessment* Temperature: 98.2 F Pulse Rate: 76 Blood Pressure: 131/84 Respiratory Rate: 16 Pulse Ox: 99 Oxygen Delivery Method: Room Air Airway Assessment Mouth opens: >3 cm Mallampati Score: II Teeth Condition: Intact Neck Range of motion (ROM): Full ROM Labs Anesthesia Preop lab: CBC CHEMISTRY COAG Pre-Assessment Diagnosis/Proposed Procedure Planned Operative Procedure(s): COLONOSCOPY Anesthesia History Anesthesia History - steamer blocker: Anesthesia History - steamer blocker Hx Hospitalization No 02/11/25 08:21 Any Problems With Anesthesia No 02/11/25 08:21 Cholinesterase deficiency No 02/11/25 08:21 You/Your Family Experience No 02/11/25 08:21 fever (hyperthermia) with Relationship Recent Exposure to Contagious No 02/14/25 06:59 Disease Does patient have nerve No 02/11/25 08:21 stimulator Patient instructed to have device shut off --Does patient have Pacemaker No 02/14/25 06:59 or ICD? When Was Last Pacemaker Check QUESTION #4 FULL TEXT: You/Your Family Experience fever (hyperthermia) with Anesthesia Last Oral Intake Last Oral intake: Last Oral Intake NPO since 03:45 02/14/25 06:59 Meds taken in AM with sips of water? Meds patient instructed to take am of surgery PONV PONV - steamer blocker: PONV - steamer blocker Female No 02/11/25 08:21 HX of Motion Sickness No 02/11/25 08:21 HX of N/V After Surgery No 02/11/25 08:21 Non-Smoker Yes 02/11/25 08:21 Duration of Surgery greater No 02/11/25 08:21 than 60 minutes Number of Risk Factors 1 02/11/25 08:21 PONV Score Low Risk 02/11/25 08:21 Height & Weight Height & Weight: Anesthesia: Height & Weight Height 5 ft 5 in 02/14/25 06:59 Weight: 83.5 kg 02/14/25 06:59 Body Mass Index (BMI) 30.6 02/14/25 06:59 Respiratory Assessment Respiratory Assessment - steamer blocker: Respiratory Tract Infection Hx - steamer blocker Hx Respiratory Tract Infection No 02/11/25 08:21 STOP Sleep Apnea STOP Sleep Apnea - steamer blocker: STOP Sleep Apnea - steamer blocker Hx Hypertension No 02/11/25 08:21 Hx Sleep Apnea No 02/11/25 08:21 CPAP BIPAP Do you snore loudly (louder Yes 02/11/25 08:21 than talking or can be heard Do you often feel tired/ No 02/11/25 08:21 fatigued/ sleepy during daytime? Has anyone observed you stop No 02/11/25 08:21 breathing during sleep? STOP Results Negative 02/11/25 08:21 QUESTION #5 FULL TEXT : Do you snore loudly (louder than talking or can be heard through closed doors)? 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 Specify any problems Hx of Preganancy in last 3 N/A 02/11/25 08:21 Months Nurse Filling Out Transfusion MGRIFFITH 02/11/25 08:21 & Questions: Date: 02/11/25 02/11/25 08:21 Time: 08:23 02/11/25 08:21 Patient unable to answer at this time (ie. confused, unrespo /Reproduction History /Reproductive History - steamer blocker: /Reproductive Hx- steamer blocker Hx Now Gestational Age (in weeks): EDC: Hx Hx Para Hx Section SAB Does the father of the baby or his family experience fever w Father of the baby Malignant Hypertension history comment Active Medications Active Medications: Current Medications Generic Name Dose Route Start Last Admin Trade Name Freq PRN Reason Stop Dose Admin Lactated Ringer's 1,000 mls @ 15 mls/hr 02/14/25 07:00 02/14/25 06:58 IV 15 mls/hr .Q48H KIRAN Administration PFSH Medical History Wears glasses Gastric reflux Non-smoker Home Medications ?Medication ?Instructions ?Recorded ?Last Taken ?Type omeprazole 20 mg capsule,delayed 20 mg PO DAILY Unknown History release Allergy/AdvReac Type Severity Reaction Status Date / Time No Known Allergies Allergy Verified 02/14/25 06:58 Surgical History History of back surgery History of surgery History of colonoscopy Social History Smoking Status: Never smoker Review of Systems (Anesthesia) ROS Narrative System reviewed and no additional complaints, except as documented. Physical Exam Const alert, oriented x3 and average body habitus Resp normal respiratory effort, normal air movement and clear to auscultation bilaterally Cardio regular rate, regular rhythm and no murmurs; Negative for diaphoretic
--- NOTE | 2025-02-14 07:45 | COLBX_PTH ---
PATIENT: TOMAS BECERRA LOC: EN U#:[id number] AGE/SX: 59/M ROOM: RE02/14/[address]: Dr. 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 Large intestine, splenic flexure, polypectomy: * Tubular adenoma MICROSCOPIC DESCRIPTION Slides are reviewed. GROSS DESCRIPTION A. Received in fixative is one container labeled with the patient's name and designated Splenic flexure polyp biopsy. The specimen consists of one irregular fragment of tristan tissue that measures 0.2 x 0.2 x 0.2 cm. The specimen is totally submitted in one cassette. NV 02/14/2025 CPT:82574
--- NOTE | 2025-02-14 08:22 | OP.COLON_ITS ---
Patient Name: Zain Armando Procedure Date: 02/14/2025 8:00 AM Date of : 1965 Age: 59 Procedure: Colonoscopy Indications: Screening for colorectal malignant neoplasm Providers: Baltazar Bond DO Referring MD: Andrea Monroy Medicines: Monitored Anesthesia Care Patient Profile: This is a 59 year old male. Refer to note in patient chart for documentation of history and physical. Last Colonoscopy: several years ago. Complications: No immediate complications. Procedure: Pre-Anesthesia Assessment: - Prior to the procedure, a History and Physical was performed, and patient medications and allergies were reviewed. The patient is competent. The risks and benefits of the procedure and the sedation options and risks were discussed with the patient. All questions were answered and informed consent was obtained. Patient identification and proposed procedure were verified by the physician in the pre-procedure area. Mental Status Examination: alert and oriented. Airway Examination: normal oropharyngeal airway and neck mobility. Respiratory Examination: clear to auscultation. CV Examination: normal. Prophylactic Antibiotics: The patient does not require prophylactic antibiotics. Prior Anticoagulants: The patient has taken no anticoagulant or antiplatelet agents except for NSAID medication. ASA Grade Assessment: II - A patient with mild systemic disease. After reviewing the risks and benefits, the patient was deemed in satisfactory condition to undergo the procedure. The anesthesia plan was to use monitored anesthesia care (MAC). Immediately prior to administration of medications, the patient was re-assessed for adequacy to receive sedatives. The heart rate, respiratory rate, oxygen saturations, blood pressure, adequacy of pulmonary ventilation, and response to care were monitored throughout the procedure. The physical status of the patient was re-assessed after the procedure. After I obtained informed consent, the scope was passed under direct vision. Throughout the procedure, the patient's blood pressure, pulse, and oxygen saturations were monitored continuously. The Colonoscope was introduced through the anus and advanced to the cecum, identified by appendiceal orifice and ileocecal valve. The colonoscopy was performed without difficulty. The patient tolerated the procedure well. The quality of the bowel preparation was adequate. The ileocecal valve, appendiceal orifice, and rectum were photographed. Scope In: 8:07:57 AM Scope Withdrawal Time 0 hours 6 minutes 58 seconds Scope Out: 8:17:50 AM Total Procedure Duration Time 0 hours 9 minutes 53 seconds Findings: The perianal and digital rectal examinations were normal. A 5 mm polyp was found in the splenic flexure. The polyp was sessile. The polyp was removed with a jumbo cold forceps. Resection and retrieval were complete. Verification of patient identification for the specimen was done. Estimated blood loss was minimal. Multiple small and large-mouthed diverticula were found in the recto-sigmoid colon, sigmoid colon, splenic flexure and hepatic flexure. The exam was otherwise without abnormality on direct and retroflexion views. Non-bleeding internal hemorrhoids were found during retroflexion. The hemorrhoids were Grade I (internal hemorrhoids that do not prolapse). Impression: - One 5 mm polyp at the splenic flexure, removed with a jumbo cold forceps. Resected and retrieved. - Diverticulosis in the recto-sigmoid colon, in the sigmoid colon, at the splenic flexure and at the hepatic flexure. - The examination was otherwise normal on direct and retroflexion views. Recommendation: - Discharge patient to home. - Resume previous diet. - Continue present medications. - Await pathology results. - Repeat colonoscopy in 5 years for surveillance. Procedure Code(s): --- Professional --- 74639, Colonoscopy, flexible; with biopsy, single or multiple CPT copyright 2021 [employer]. All rights reserved. The codes documented in this report are preliminary and upon medical coder review may be revised to meet current compliance requirements. Baltazar Bond DO 02/14/2025 8:21:52 AM This report has been signed electronically. Number of Addenda: 0 Note Initiated On: 02/14/2025 8:00 AM
--- NOTE | 2025-02-14 08:22 | OP.PROVAT_ITS ---
02/14/2025 Andrea Monroy Re : Colonoscopy procedure for Zain Hemphill Tarun This procedure was performed on Friday, February 14, 2025. My impressions and recommendations are as follows: Impressions : - One 5 mm polyp at the splenic flexure, removed with a jumbo cold forceps. Resected and retrieved. - Diverticulosis in the recto-sigmoid colon, in the sigmoid colon, at the splenic flexure and at the hepatic flexure. - The examination was otherwise normal on direct and retroflexion views. Recommendations : - Discharge patient to home. - Resume previous diet. - Continue present medications. - Await pathology results. - Repeat colonoscopy in 5 years for surveillance. My findings are described in the full procedure note, which is enclosed. If I can be of further assistance, please feel free to contact me at . Sincerely, Baltazar Bond, 02/14/2025 8:21:52 AM This report has been signed electronically.
--- NOTE | 2025-02-14 08:29 | PCM.POST.ANE ---
Anesthesia: Postop Eval I Current Vital Signs Temperature: 97.2 F Pulse Rate: 70 Blood Pressure: 97/70 Respiratory Rate: 16 Pulse Ox: 96 Oxygen Delivery Method: Room Air Assessment Airway patent: Yes Spontaneous unlabored respirations: Yes Mental status: Asleep nausea: No Vomiting: No Anesthesia Complication: No Fluid Hydration Crystalloid volume administer (ml): 500 Total IV fluid infused: 500 Progress Note Anesthesia document: Postop Eval 1 completed: Yes
--- NOTE | 2025-02-14 08:42 | PCM.POSTANE2 ---
Anesthesia Postop Eval I Sum Postop Eval Completion status Anesthesia document: Postop Eval 1 completed: Yes Anesthesia Postop Eval I Summary Anesthesia Postop Eval I Summary: Anesthesia Postop Eval I: Assessment Summary Airway patent Yes 02/14/25 08:30 [email or web address] Spontaneous unlabored Yes 02/14/25 08:30 [email or web address] respirations Mental status Asleep 02/14/25 08:30 [email or web address] nausea No 02/14/25 08:30 [email or web address] Vomiting No 02/14/25 08:30 [email or web address] Anesthesia Postop Eval I: Fluid Summary Crystalloid volume administer 500 02/14/25 08:30 [email or web address] (ml) Colloids volume administered ( ml) Blood Product volume administered (ml) Total IV fluid infused 500 02/14/25 08:30 [email or web address] Anesthesia Postop Eval I: Summary Notes Anesthesia Complication No 02/14/25 08:30 [email or web address] Anesthesia Complication Comment: Post-operative progress note Anesthesia: Postop Eval II Evaluation Mental status: Awake Pain Level: 0 nausea: No Vomiting: No Complications Anesthesia Complication: No
== END 2025-02-14 08:56 | disposition home or self-care (01) ==
LOC: EN 06:39 → AC 06:40
PROVIDERS: PCP Nurse Practitioner Family; Referring Provider Nurse Practitioner Family; Visit Provider Internal Medicine Gastroenterology
PROC: 0DJD8ZZ Inspection of Lower Intestinal Tract, Via Natural or Artificial Opening Endoscopic (ICD-10-PCS; CPT 45378; principal; 2025-02-14 07:40)
DX: Z12.11 Encounter for screening for malignant neoplasm of colon (principal); K57.30 Diverticulosis of large intestine without perforation or abscess without bleeding; K63.5 Polyp of colon; K64.0 First degree hemorrhoids; K21.9 Gastro-esophageal reflux disease without esophagitis; Z79.899 Other long term (current) drug therapy; D12.3 Benign neoplasm of transverse colon
CPT/HCPCS: 45380; 88305; J2405